=== PATIENT | male | born 1955 | race Caucasian/White ===

== ENCOUNTER 2023-12-25 19:12 | Emergency (ER) | payer MEDICARE, OTHER, SELFPAY ==
--- NOTE | ~2023-12-25 | XR_ITS ---
EXAMINATION: XR femur LT min 2V, [id number] DATE: 12/25/2023 19:53 INDICATION: Left leg injury TECHNIQUE: 1. AP and lateral views of the left femur were obtained on overlapping proximal and distal images. 2. AP and lateral views of the left knee were obtained.. COMPARISON: None. FINDINGS: Spiral fracture of the distal left femoral diaphysis. There is 1-2 cortical widths anterolateral disp lacement and 8 degrees anterior angulation. There is also 5.7 cm proximal migration. No other fractur es identified. Normal alignment with mild osteoarthritis at the left hip. Normal alignment at the lef t knee joint with at least moderate osteoarthritis in the lateral compartment and mild osteoarthritis in the medial and patellofemoral compartments. No left knee joint effusion. There are atheroscleroti c calcifications along the popliteal artery. IMPRESSION: 1. Displaced and angulated distal diaphyseal fracture of the left femur. Reviewed, dictated and finalized at location A. SSIONS NURSE IMPRESSION: 1. Displaced and angulated distal diaphyseal fracture of the left femur.
[2023-12-25 19:17] VITALS: BP 136/72; PULSE 97; RESP 14; TEMP 36.4; O2SAT 100
--- NOTE | 2023-12-25 19:25 | ED.GENADULT ---
HPI - General Adult General Chief complaint: Extremity Injury, Lower <CA Arteaga Last Filed: 12/26/23 02:08> Stated complaint: knee pain <CA Arteaga Last Filed: 12/26/23 02:08> Time Seen by Provider: 12/25/23 19:20 <CA Arteaga Last Filed: 12/26/23 02:08> Source: patient <CA Arteaga Last Filed: 12/26/23 02:08> Mode of arrival: ambulatory <CA Arteaga Last Filed: 12/26/23 02:08> Limitations: no limitations <CA Arteaga Last Filed: 12/26/23 02:08> History of Present Illness HPI narrative: This is a 68-year-old male who presents to the ED via EMS with chief complaint of left knee injury that occurred just prior to arrival. Patient states that he had his left leg crossed over the right knee while trying to put on shoes to go bowling tonight. He reports when he across the leg over and bent forward he felt a pop and immediate pain in left knee. Denies any further sites of pain or injury. Denies numbness, weakness, <CA Arteaga Last Filed: 12/26/23 02:08> Related Data Allergies/adverse reactions: Allergies Allergy/AdvReac Type Severity Reaction Status Date / Time Penicillins Allergy Rash Verified 12/25/23 19:24 <CA Arteaga Last Filed: 12/26/23 02:08> Review of Systems Review of Systems: All systems as dictated in HPI <CA Arteaga Last Filed: 12/26/23 02:08> Exam Narrative: GENERAL: Well-appearing, well-nourished, and in no acute distress. HEAD: Normocephalic, atraumatic. EYES: PERRLA and EOMI. ENT: Nares clear, no rhinorrhea or epistaxis. Mucous membranes moist. Oropharynx without tonsillar hypertrophy exudate or other lesions. NECK: Supple. No adenopathy or masses. CHEST: No respiratory distress. Clear to auscultation. No wheezes rales or rhonchi HEART: Regular rate and rhythm. No murmur heard. Normal peripheral pulses. ABDOMEN: Soft, nontender, nondistended, normal active bowel sounds. MSK: LLE: Moderate effusion noted to the left knee. Crepitus palpated. Moderate tenderness throughout the left knee. Patella seems to be aligned. The left leg is slightly shorter than right. Minimal hip pain with log roll of the left leg. Neurovascularly intact distally RLE: Benign SKIN: Warm, dry, no rash. NEURO: Alert and oriented x3. No focal deficits. PSYCH: Normal mood and affect. <Kimani Veronica PA-C - Last Filed: 12/26/23 02:08> Course Vital Signs Vital signs: Vital Signs Temperature 97.6 F 12/25/23 19:17 Pulse Rate 97 12/25/23 19:17 Respiratory Rate 14 12/25/23 19:17 Blood Pressure 136/72 12/25/23 19:17 Pulse Oximetry 100 12/25/23 19:17 Oxygen Delivery Room Air 12/25/23 19:17 Temperature 97.6 F 12/25/23 21:26 Pulse Rate 76 12/25/23 21:26 Respiratory Rate 15 12/25/23 21:26 Blood Pressure 137/78 12/25/23 21:26 Pulse Oximetry 100 12/25/23 21:26 Oxygen Delivery Room Air 12/25/23 19:17 <Kimani Veronica PA-C - Last Filed: 12/26/23 02:08> Vital Signs Temperature 97.6 F 12/25/23 19:17 Pulse Rate 97 12/25/23 19:17 Respiratory Rate 14 12/25/23 19:17 Blood Pressure 136/72 12/25/23 19:17 Pulse Oximetry 100 12/25/23 19:17 Oxygen Delivery Room Air 12/25/23 19:17 Temperature 97.6 F 12/25/23 21:26 Pulse Rate 76 12/25/23 21:26 Respiratory Rate 15 12/25/23 21:26 Blood Pressure 137/78 12/25/23 21:26 Pulse Oximetry 100 12/25/23 21:26 Oxygen Delivery Room Air 12/25/23 19:17 <Jonnie Montano MD - Last Filed: 12/26/23 13:04> Medical Decision Making MDM Narrative Medical decision making narrative: This is a 68-year-old male who presents to the ED with chief complaint of left knee injury occurring while bending over to tie his shoes. He comes via EMS with diffuse left knee swelling and crepitus. Neurovascularly intact distally. Vitals are normal. Exam remarkab
[2023-12-25 20:39] LABS: Alanine Aminotransferase 25 U/L (6-50); Albumin Level 4.1 g/dL (3.5-5.1); Alkaline Phosphatase 58 U/L (38-126); Anion Gap 9 mmol/L (8-16); Aspartate Amino Transferase 29 U/L (17-59); Bilirubin,Total 0.8 mg/dL (0.2-1.3); Blood Urea Nitrogen 22 mg/dL (9-20); Calcium 9.4 mg/dL (8.4-10.2); Carbon Dioxide 25 mmol/L (22-30); Chloride 104 mmol/L (98-107); Estimated CRCL calculation 79 ml/min; Estimated Glomerular Filt Rate > 60; Glucose 107 mg/dL (65-110); Potassium 4.1 mmol/L (3.4-5.0); Sodium 138 mmol/L (137-145)
[2023-12-25 21:03] LABS: Basophils Absolute Auto 0.1 K/mm3 (0.0-0.1); Basophils Percent Auto 0.7 % (0.2-1.2); Eosinophils Absolute Auto 0.1 K/mm3 (0-0.3); Eosinophils Percent Auto 0.8 % (0-4.4); Hematocrit 45.2 % (42.0-52.0); Hemoglobin 15.5 g/dL (14.0-18.0); Immature Granulocyte Absolute 0.05 K/mm3 (0.00-0.031); Immature Granulocyte Percent A 0.4 % (0-0.5); Lymphocytes Absolute Auto 1.59 K/mm3 (0.9-3.2); Mean Corpuscular HGB Conc 34.3 g/dl (32-36); Mean Corpuscular Hemoglobin 29.6 pg (26-34); Mean Corpuscular Volume 86.3 fl (80-100); Mean Platelet Volume 10.8 fl (7.4-10.4); Monocytes Absolute Auto 1.1 K/mm3 (0.1-0.6); Monocytes Percent Auto 8.1 % (2.6-8.5); Neutrophils Absolute Auto 10.3 K/mm3 (1.3-6.7); Platelet Count Result 266 k/mm3 (150-375); Red Blood Count 5.24 M/mm3 (4.6-6.20); Red Cell Distribution Width 14.2 % (11.5-14.5); White Blood Count 13.2 K/mm3 (4.5-10.0)
[2023-12-25 21:17] LABS: Partial Thromboplastin Time 29.2 SECONDS (22.3-36.8); Prothrombin Time 13.3 Seconds (11.1-14.7)
[2023-12-25] MEDS: MORPHINE SULFATE (*CRX) 4 MG/ML INJ IV PUSH (21:18)
[2023-12-25 21:26] VITALS: BP 137/78; PULSE 76; RESP 15; TEMP 36.4; O2SAT 100
== END 2023-12-25 21:28 | disposition short-term general hospital (02) ==
LOC: ANHED 20:35
PROVIDERS: Emergency Provider Physician Assistant
DX: S72.342A Displaced spiral fracture of shaft of left femur, initial encounter for closed fracture (principal); X58.XXXA Exposure to other specified factors, initial encounter
CPT/HCPCS: 36415; 73552; 73560; 80053; 85025; 85610; 85730; 96374; 99285; J2270

== ENCOUNTER 2024-01-14 07:51 | Outpatient (RCR) | payer MEDICARE, OTHER, SELFPAY ==
--- NOTE | 2024-01-14 08:02 | OPREHPOC ---
Outpatient Therapy Plan of Care This is a Multidisciplinary Plan of Care that may contain components documented by all disciplines (PT, OT, and ST.) PT Problem 1 PT Problem #1 Knowledge Deficit PT Goal 1 Goal 1. independent and compliant with HEP Target Visit 6 PT Problem 2 PT Problem #2 Pain PT Goal 1 Goal 1. patient to maintain pain in the L hip/LE no more than 2/10 Target Visit 12 PT Problem 3 PT Problem #3 Impaired Range of Motion PT Goal 1 Goal 1. improve active L hip flexion to 100 degrees or better 2. improve active L knee flexion to 115 degrees or better 3. improve passive L hip ER to 30 degrees or better Target Visit 12 PT Problem 4 PT Problem #4 Impaired Strength PT Goal 1 Goal 1. improve bilateral hip strength to 4+/5 or better flexion 2. improve bilateral hip abduction to 4/5 or better bilat 3. 5/5 bilateral knee strength 4. 5/5 bilateral ankle DF Target Visit 12 PT Problem 5 PT Problem #5 Impaired Functional Mobil PT Goal 1 Goal 1. patient to ambulate with a cane in 3 weeks Target Visit 6 PT Goal 2 Goal 1. patient to ambulate without any AD 2. patient to ambulate up and steps with reciprocal gait mechanics 3. LEFS to display less than 30% functional deficits 4. patient to return to golf weekly to improve quality of life Target Visit 12
--- NOTE | 2024-01-14 08:03 | PTOPEVAL1 ---
Assessment and note entered by JT File, PT Evaluation Information Assessment Status Evaluation Diagnosis s/p spiral fracture of the L femur Onset 12/25/23 Subjective Information patient was putting on his socks and broke his femur. he reports he was sitting down when this happened. he reports he had surgery the next day. he had an ORIF with IM nail in the L femur. he is WBAT and has no other restrictions. he reports he is on his own at home for the week as his is out of town for work. he reports he does feel tight as he has not had any therapy. patient reports he would like to get back to golfing, gardening, and cutting grass. he reports he would also like to get back to walking without a walker, and playing with his grandson. Reported Pain Level Pain Score 1: Self Report Assessment PT Clinical Summary mr. reese is a 68 yo man who presents to skilled PT services for evaluation and treatment of deficits acquired after L femur fracture. he had an ORIF and IMN placement on the L femur on . he displays decreased rom of the L hip and knee today. he also displays weakness of the L hip and L knee, and abnormal gait mechanics today. continued skilled PT is indicated to improve patients objective/functional deficits and return to prior level functional activity performance quality of life. Plan of Care Interventions Electrical Stimulation,Gait Training,Hot Pack/Cold Pack,Manual Therapy,Neuro Re-education,Patient/ Caregiver Educati,Therapeutic Activities, Therapeutic Exercise PT Services Indicated Yes Treatment Frequency and 2x weekly for 12 visits Duration These treatments will address the objective and functional deficits as defined above. The patient will be advanced safely and appropriately in order for the patient to progress towards his/her prior level of function. Additional exercises will be introduced and as well as a comprehensive home exercise program upon discharge, if needed, ?to ensure carryover of functional gains achieved in the clinic. This treatment plan has been reviewed and agreement upon by the patient.
--- NOTE | 2024-02-03 10:23 | PCPTNOTE ---
02/03/24: Pt cancelled today's appointment, no reason given. -Faye Mcdonald, PT
--- NOTE | 2024-02-10 07:26 | PCPTNOTE ---
patient cancelled due to being hospitalized
== END 2024-02-06 20:00 | disposition home or self-care (01) ==
LOC: CHSPT 07:51
DX: S72.342D Displaced spiral fracture of shaft of left femur, subsequent encounter for closed fracture with routine healing (principal)
CPT/HCPCS: 97110; 97150; 97161; 97530

== ENCOUNTER 2024-05-04 07:48 | Outpatient (RCR) | payer MEDICARE, OTHER, SELFPAY ==
--- NOTE | 2024-05-04 10:48 | OPREHPOC ---
Outpatient Therapy Plan of Care This is a Multidisciplinary Plan of Care that may contain components documented by all disciplines (PT, OT, and ST.) PT Problem 1 PT Problem #1 Knowledge Deficit PT Goal 1 Goal The patient will be independent in a home exercise program. Target Visit 4 PT Problem 2 PT Problem #2 Impaired Balance PT Goal 1 Goal The patient will improve Tinetti Balance Scale score from 10/17 to 20 indicating a moderate fall risk rather than high fall risk. Target Visit 24 PT Problem 3 PT Problem #3 Impaired Gait PT Goal 1 Goal The patient will demonstrate the ability to ambulate with the least restrictive assistive device modified independent for a total of 600 feet during the 6 minute walk test. Target Visit 24 PT Problem 4 PT Problem #4 Impaired Functional Mobil PT Goal 1 Goal 1. The patient will perform pivot transfer from wheelchair to treatment mat with stand by assist. 2. The patient will demonstrate 150 degrees of left shoulder flexion AROM in sitting to improve overhead reaching ability. Target Visit 10 PT Goal 2 Goal The patient will transfer sit to stand independently. Target Visit 24 PT Problem 5 PT Problem #5 Impaired Strength PT Goal 1 Goal 1. The patient will demonstrate 4/5 left shoulder strength to improve overhead lifting ability. 2. The patient will demonstrate 4/5 bilateral hip strength to improve standing and walking tolerance . Target Visit 24
--- NOTE | 2024-05-04 10:48 | PTOPEVAL1 ---
Assessment and note entered by Faye Mcdonald, PT Evaluation Information Assessment Status Evaluation Diagnosis Weakness, GBS Onset 02/03/24 Subjective Information Vincent Ojeda reports on 02/03/24 he woke up in the middle of the night and had no feeling in both hands and feet. He went by ambulance to [facility] and was diagnosed with Guillain-Richmond Syndrome ( GBS). He spent 3 weeks in the ICU with a collapsed lung and he had a trach and NG tube. He then spent 3 more weeks at [facility] on a medical floor. From there, he went to [facility] for rehab for a month. He then went to [facility] in [place] for more intense rehab. He spent 30 days there. He came home on 04/25/24. He has a custom made manual wheelchair and two walkers he uses at home. He uses one walker in the bathroom and the other in the rest of the house. He also uses a wheelchair in the house. He was taking cancer medication in January because he had a spot on his lung and he thinks that may have caused him to develop GBS. He has an appointment on 05/10/24 for a full day of testing to follow up on GBS and the potential cancer. He has no pain but he has difficulty moving and weakness. He is able to walk short distances of 50-60 feet in his home with a walker and he can stand for a few minutes to cook. He reports he lives with his but she is out of town a lot working. He is able to do daily activities of bathing, dressing, and grooming independently. He has in home care assistance 3 days a week to help with meal prep and cleaning. He is unable to drive. Reported Pain Level Pain Score 0: Self Report Assessment PT Clinical Summary Vincent Ojeda presents with weakness and decreased functional abilities after being diagnosed with Guillain-Richmond Syndrome in January 2024. He also sustained a left femur fracture in December 2023. He spent 6 weeks in the hospital and participated in 2 months of inpatient rehabilitation at 2 different facilities. He has difficulty with walking, prolonged standing, and sit to stand transfers. He is unable to go up and down stairs and can not drive. He objectively demonstrates decreased left shoulder AROM; decreased left > right shoulder strength; decreased bilateral hip, knee, and ankle strength; decreased static and d
--- NOTE | 2024-07-21 07:44 | PTOPDC ---
Assessment and note entered by Faye Mcdonald, PT Evaluation Information Assessment Status Discharge - Pt Not Presen Diagnosis Weakness, GBS Onset 02/03/24 Subjective Information Pt not present for discharge summary. He was reporting improved L shoulder pain at his last visit on 05/14/24. Assessment PT Clinical Summary Vincent Ojeda completed 4 skilled PT visits following diagnosis of Guillain-Ramey Syndrome. He was reporting less left shoulder pain at his last visit on 05/14/24. Pt being discharged after not being seen for 2 months. Plan of Care PT Services Indicated No
== END 2024-05-14 14:33 | disposition home or self-care (01) ==
LOC: CHSPT 07:48
PROVIDERS: PCP Internal Medicine; Visit Provider Internal Medicine
DX: R53.1 Weakness (principal); Y93.B9 Activity, other involving muscle strengthening exercises
CPT/HCPCS: 97110; 97161; 97530

== ENCOUNTER 2024-07-08 13:45 | Outpatient (RCR) | payer MEDICARE, OTHER, SELFPAY ==
--- NOTE | 2024-05-17 15:33 | OTOPEVAL1 ---
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 He was doing very well recovering from this. He was started on pembrolizumab (an immunosuppressant) on 01/28/24 for cancer treatment, which is when he began to experience gross bodily weakness and was admitted to [facility]. On 02/10/24 he was intubated due to a decline in his respiratory status. He was diagnosed with Guillain-Bayard Syndrome. He discharged to [facility] 03/04/24 and subsequently to [facility] for continued OT/PT services. He has been home from rehab for about 3 weeks. He states in the last few weeks he has progressed to being able to complete bathing, dressing, and toileting independently. He has been standing and completing light meal prep with his walker. He is motivated to be able to go up/down stairs, walk without his walker, grill, get down and be able to pull weeds, mow the grass, garden, trim trees, drive, grocery shop, and play golf. He lives at home with his who travels for work often. Assessment OT Clinical Summary Patient referred to OT with dx of Guillain-Ibrahim? Syndrome. He presents with left shoulder and periscapular muscle weakness, evident by an atrophied scapula. He demonstrates very weak shoulder external rotation on this arm and has been heavily compensating with the deltoid/traps to raise the arm overhead. The left elbow through wrist have progressed to a functional level. The right shoulder has progressed to 3+/5 grossly. The elbow is weak, measuring 4-/5. Distally, bilateral inventory control analyst strengths are about 50% normal. Due to the gross upper body weakness he is limited in functional lifting, reaching, and carrying, which affects ADLs and IADLs. Skilled OT indicated to maximize functional strength and independence with ADLs. Plan of Care Interventions Therapeutic Exercise,Neuro Re-education, Therapeutic Activities OT Services Indicated Yes These treatments will address the objective and functional deficits as defined above. The patient will be advanced safely and appropriately in order for the patient to progress towards his/her prior level of function. Additional exercises will be introduced and as well as a comprehensive
--- NOTE | 2024-05-17 15:33 | OPREHPOC ---
Outpatient Therapy Plan of Care This is a Multidisciplinary Plan of Care that may contain components documented by all disciplines (PT, OT, and ST.) OT Problem 1 OT Problem #1 Knowledge Deficit OT Goal 1 Goal 1. Patient to be independent with instructed materials. Target Visit 10 OT Problem 2 OT Problem #2 Impaired Strength OT Goal 1 Goal Left UE: 1. Patient to increase left shoulder external rotation strength to 3+/5. 2. Patient to increase left shoulder flexion and abduction strength to 4/5. 3. Patient to increase left forest science professor strength to 60 lbs. Right UE: 4. Patient to increase right shoulder flexion, abduction, and external rotation strength to 4/5. 5. Patient to increase right biceps/triceps strength to 4+/5. 6. Patient to increase right forest science professor strength to 60 lbs. Target Visit 10 OT Problem 3 OT Problem #3 Impaired Functional ADLs OT Goal 1 Goal 1. Patient to be able to stand and place 1 lb. objects onto an overhead shelf with bilateral UEs. Target Visit 10
--- NOTE | 2024-06-10 14:51 | PCPTNOTE ---
Addendum: Goals related to 05/17/2024 evaluation.
--- NOTE | 2024-06-14 07:29 | OPREHPOC ---
Outpatient Therapy Plan of Care This is a Multidisciplinary Plan of Care that may contain components documented by all disciplines (PT, OT, and ST.) PT Problem 1 PT Problem #1 Knowledge Deficit PT Goal 1 Goal Pt will demo HEPs on BLE flexibility, core stabilization and lumbar stabilization indep Target Visit 12 PT Problem 2 PT Problem #2 Impaired Range of Motion PT Goal 1 Goal Pt will demo 10-15 deg improvement in BLE AROM to all planes. (at eval) BLE hip flexors, abductors: 3-/5 L knee extensors: 3/5, flexors: 3-/5 B ankle DF: 3/5 unable to take resistance Target Visit 12 PT Problem 3 PT Problem #3 Impaired Strength PT Goal 1 Goal Pt will demo 4/5 strength grossly to BLEs. Target Visit 12 PT Problem 4 PT Problem #4 Impaired Gait PT Goal 1 Goal Pt will demo improved B heel strike and improved hip and knee flexion during toe-off/midswing phase . Target Visit 12 PT Problem 5 PT Problem #5 Impaired Functional Mobil PT Goal 1 Goal Pt will safely perform foot clearance during ascending/descending steps with railings. Target Visit 12 OT Problem 1 OT Problem #1 Knowledge Deficit OT Goal 1 Goal 1. Patient to be indepenent with instructed materials. Target Visit 10 OT Problem 2 OT Problem #2 Impaired Strength OT Goal 1 Goal Left UE: 1. Patient to increase left shoulder external rotation strength to 3+/5. 2. Patient to increase left shoulder flexion and abduction strength to 4/5. 3. Patient to increase left diamond mounter strength to 60 lbs. Right UE: 4. Patient to increase right shoulder flexion, abduction, and external rotation strength to 4/5. 5. Patient to increase right biceps/triceps strength to 4+/5. 6. Patient to increase right diamond mounter strength to 60 lbs.
--- NOTE | 2024-06-17 11:04 | OTOPPROG ---
Assessment and note entered by Chaim Lee, RONNA/Robert, CHT Evaluation Information Assessment Status Progress Diagnosis Guillain-Julian Syndrome Subjective Information Patient reports good progress since working with therapy. He reports he is doing his ADLs quicker. He no longer has the [facility] [employer] service, so he is having to make his own meals. He is doing more meal prep in the kitchen, standing at the counter to chop veggies, opening cans, etc. He is back to cutting his own nails. He reports he continues to experience paresthesia in the fingers . He states his left shoulder is feeling stronger and no longer popping when he raises it up. He is motived to get back to grilling, get down and be able to pull weeds, mow the grass, garden, trim trees, drive, grocery shop, and play golf. He is unable to do these activities yet. Assessment OT Clinical Summary Patient referred to OT with dx of Guillain-Ibrahim? Syndrome. He presents today for OT reassessment after 9 OT sessions focused on improving UB strength and function. Left shoulder flexion and abduction is progressing from 3/5 to 3+/5, he is no longer experiencing popping or discomfort with raising the arm overhead. He continues to demonstrate very limited external rotation strength on the left. Today he was able to use the left UE to place a 1 lb. weight on a high shelf x5 reps consecutively. Left elbow, wrist, and construction supervisor/carpenter have made steady gains. He is now able to open jars without difficulty. Right UE grossly has made gains, measuring 4-/5 for flexion and abduction and 4+/5 for abduction and extension. Right elbow, wrist, and hand have also made steady gains. He is progressing with his free weights and bands at home also. Continued skilled OT indicated to maximize functional strength and independence with ADLs. Plan of Care Interventions Therapeutic Exercise,Neuro Re-education, Therapeutic Activities OT Services Indicated Yes Treatment Frequency and 2x/week for 10 visits Duration These treatments will address the objective and functional deficits as defined above. The patient will be advanced safely and appropriately in order for the patient to progress towards his/her prior level of function. Additional exercises will be introduced and as well as a comprehensive home exercise program upon discharge, if needed, ?to ensure carryover of functional gains achieved in the clinic. This treatment plan has
--- NOTE | 2024-06-17 11:04 | OPREHPOC ---
Outpatient Therapy Plan of Care This is a Multidisciplinary Plan of Care that may contain components documented by all disciplines (PT, OT, and ST.) PT Problem 1 PT Problem #1 Knowledge Deficit PT Goal 1 Goal Pt will demo HEPs on BLE flexibility, core stabilization and lumbar stabilization indep Target Visit 12 PT Problem 2 PT Problem #2 Impaired Range of Motion PT Goal 1 Goal Pt will demo 10-15 deg improvement in BLE AROM to all planes. (at eval) BLE hip flexors, abductors: 3-/5 L knee extensors: 3/5, flexors: 3-/5 B ankle DF: 3/5 unable to take resistance Target Visit 12 PT Problem 3 PT Problem #3 Impaired Strength PT Goal 1 Goal Pt will demo 4/5 strength grossly to BLEs. Target Visit 12 PT Problem 4 PT Problem #4 Impaired Gait PT Goal 1 Goal Pt will demo improved B heel strike and improved hip and knee flexion during toe-off/midswing phase . Target Visit 12 PT Problem 5 PT Problem #5 Impaired Functional Mobil PT Goal 1 Goal Pt will safely perform foot clearance during ascending/descending steps with railings. Target Visit 12 OT Problem 1 OT Problem #1 Knowledge Deficit OT Goal 1 Goal 1. Patient to be indepenent with instructed materials. ---OT POC UPDATE 06/17/24--- 1. Met Target Visit 20 OT Problem 2 OT Problem #2 Impaired Strength OT Goal 1 Goal Left UE: 1. Patient to increase left shoulder external rotation strength to 3+/5. 2. Patient to increase left shoulder flexion and abduction strength to 4/5. 3. Patient to increase left district court judge strength to 60 lbs. Right UE: 4. Patient to increase right shoulder flexion, abduction, and external rotation strength to 4/5. 5. Patient to increase right biceps/triceps strength to 4+/5.
--- NOTE | 2024-06-21 13:37 | PTOPPROG ---
Assessment and note entered by Alexia Aguayo, PT Evaluation Information Assessment Status Progress Diagnosis GBS, ICD-10 Condition Codes (PT) M54.16,Pain in right hip M25.551,Difficulty Walking R26.2,R26.9 Onset February 03, 2024 Subjective Information Pt reports he roughly had 2 hours of sleep last night which may affect my performance today . States he is feeling that he has gained strength, continue to experience insomnia which affects his ability to perform daily tasks. states that his main goal right now is to be able to walk up and down stairs, get in and out of car and drive independently. Assessment PT Clinical Summary Pt demo gains in strength and ROM, improved standing balance and ambulation. However, continues to demo deficits and continue to be at a high risk for falls at this time. Skilled PT necessary to continue to progress towards established goals and improve independence and safety. Plan of Care Interventions Electrical Stimulation,Gait Training,Hot Pack/Cold Pack,Manual Therapy,Neuro Re-education,Patient/ Caregiver Education,Therapeutic Activities, Therapeutic Exercise Other Interventions IASTM, Dry Needling PT Services Indicated Yes Treatment Frequency and 2x/wk x 10 visits Duration These treatments will address the objective and functional deficits as defined above. The patient will be advanced safely and appropriately in order for the patient to progress towards his/her prior level of function. Additional exercises will be introduced and as well as a comprehensive home exercise program upon discharge, if needed, ?to ensure carryover of functional gains achieved in the clinic. This treatment plan has been reviewed and agreement upon by the patient.
--- NOTE | 2024-06-21 13:51 | OPREHPOC ---
Outpatient Therapy Plan of Care This is a Multidisciplinary Plan of Care that may contain components documented by all disciplines (PT, OT, and ST.) PT Problem 1 PT Problem #1 Knowledge Deficit PT Goal 1 Goal Pt will demo HEPs on BLE flexibility, core stabilization and lumbar stabilization indep Target Visit 12 Progress Partially Met Comment Pt required cues for proper execution to avoid compensatory movements; cont to work towards meeting this goal. PT Problem 2 PT Problem #2 Impaired Range of Motion PT Goal 1 Goal Pt will demo 10-15 deg improvement in BLE AROM to all planes. Target Visit 12 Progress Partially Met Comment cont to work towards this goal PT Problem 3 PT Problem #3 Impaired Strength PT Goal 1 Goal Pt will demo 4/5 strength grossly to BLEs. Target Visit 12 Progress Partially Met Comment upgraded goal to improve BLE strength to allow increased tolerance to standing tasks PT Goal 2 Goal New Goal: Pt will perform 15-20 reps of BLE motions in all planes in standing with BUE supported on the // bars. Target Visit 10 PT Problem 4 PT Problem #4 Impaired Gait PT Goal 1 Goal Pt will demo improved B heel strike and improved hip and knee flexion during toe-off/midswing phase . Target Visit 12 Progress Met PT Problem 5 PT Problem #5 Impaired Functional Mobil PT Goal 1 Goal Pt will safely perform foot clearance during ascending/descending with railings. Target Visit 12 Progress Partially Met PT Goal 2 Goal New goal: Pt will safely perform foot clearance during ascending/descending 6 steps with railings x 2. (to improve endurance as well) OT Problem 1 OT Problem #1 Knowledge Deficit OT Goal 1 Goal 1. Patient to be indepenent with instructed materials. ---OT POC UPDA
--- NOTE | 2024-07-06 09:02 | PCPTNOTE ---
Provider Canceled pts appt today due to increasing blistery looking spots surrounding recent (April) surgical site. Pt presented with increased swelling in knee joint as well. Pt reported Calling and left messages with his oncology MD but was only able to leave message with no reply by end of pt session time. Pt is encouraged to go to Emergency room for further evaluation. Pt called and they decided to not go to the emergency room and wait for PET Scan on Friday to see MD. Pt will continue with OT today.
--- NOTE | 2024-07-23 15:37 | PTOPDC ---
Assessment and note entered by Rekha Raya, PT Discharge Report Assessment Status Discharge - Pt Not Present Diagnosis GBS, ICD-10 Condition Codes (PT) M54.16,Pain in right hip M25.551,Difficulty Walking R26.2,R26.9 Onset February 03, 2024 Subjective Information pt called today and left a message to cancel his PT due to his cancer. Assessment PT Clinical Summary Eamon has received 11 PT sessions, from May 17 to June 21. He called today and canceled PT due to his cancer. The goals were not assessed. Discharge PT services. Plan of Care PT Services Indicated No
--- NOTE | 2024-07-27 11:24 | OTOPDC ---
Assessment and note entered by RONNA Hernandez/Robert, CHT OT Discharge Notification 07/27/24 OT Clinical Summary Eamon participated in 15 OT treatments from 05/17 through 07/09. Patient called and cancelled remaining therapy visits, reporting being too busy with cancer treatments at this time. No formal reassessment completed. Please refer to note dated 06/17/24 for most recent progress update from OT. Thank you for this referral.
== END 2024-07-27 14:32 | disposition home or self-care (01) ==
LOC: ANHOT 13:45
PROVIDERS: PCP Internal Medicine; Visit Provider Internal Medicine
DX: G61.0 Guillain-Barre syndrome (principal)
CPT/HCPCS: 97110; 97116; 97140; 97161; 97167; 97530; 97750

== ENCOUNTER 2024-08-29 16:04 | Inpatient (IN) | payer MEDICARE, OTHER, SELFPAY ==
[2024-08-29] VITALS (11 sets, daily range): BP systolic 95–108; BP diastolic 38–59; PULSE 73–91; RESP 15–21; TEMP 36.7–37.1; O2SAT 93–100; BMI 31.0
--- NOTE | ~2024-08-29 | CT_ITS ---
Clinical Indication: GI bleed, positive d-dimer, DVT, hypotension CT Scan of the Chest, Abdomen, and Pelvis with Contrast: Technique: Contiguous sections were acquired throughout the chest, abdomen, and pelvis after intraven ous administration of 100 cc of Omnipaque 350. Dose reduction technique was used on this scan by uti mitchelling automated exposure control and iterative reconstruction technique. The dose-length product (DL P) was 1640.47 mGy-cm. Findings: There is left supraclavicular lymphadenopathy adjacent to the left thyroid lobe. There is an enlarged right axillary lymph node, measuring 2.6 x 2.1 cm, with loss of fatty hilum (axial image 38). Enlarg ed right hilar lymph node measures 2.2 cm in diameter. Mildly enlarged left hilar lymph nodes are pre sent. No pulmonary embolus evident. No aortic aneurysm or dissection. There is no evidence of pleural or pericardial effusion. There is focal airspace consolidation at the inferolateral left upper lobe. There are probable mild d ependent atelectatic changes bilaterally. The liver, spleen, pancreas, gallbladder, adrenals and right kidney are within normal limits. No clara dence of aortic aneurysm. There is an irregular left renal mass measuring at least 7.3 x 6.3 cm, extensively involving the left renal hilar region, compatible with malignancy. There is extensive bulky retroperitoneal/perinephric lymphadenopathy with additional abnormal soft tissue partially encasing the common and external marcello c vessels bilaterally. There is additional bulky lymphadenopathy about the external iliac vessels paulo r the inguinal regions bilaterally. There are enlarged left inguinal lymph nodes. There are multiple mildly enlarged central mesenteric lymph nodes. There is metastatic implant or lymph node partial inv olving the right adrenal gland, measuring 3.1 cm in diameter (axial image 115). Left adrenal nodule m easures 2.0 cm. There are multiple additional small retroperitoneal and peritoneal implants. No bowel obstruction or bowel wall thickening. There is curvilinear apparent contrast extravasation a long the greater curvature of the stomach, which could reflect focal active GI bleeding (axial images 100-104). Suggestion of additional blood products within the gastric lumen. Urinary bladder is collapsed around a Yap catheter. Prostate gland unremarkable. There is a 2.6 cm soft tissue metastasis in the left gluteal musculature (axial image 280). There are additional smalle r soft tissue nodules in the bilateral gluteal regions (axial images 174-209). There are several soft tissue nodules in the lower anterior right thoracic subcutaneous soft tissues (axial image 97 for ex ample). There is a 4.2 cm soft tissue implant along the lateral left chest wall (axial image 97). Impression: Curvilinear apparent contrast extravasation along the greater curvature the stomach, as detailed abov e, suspicious for active GI bleed. 7.3 x 6.3 cm left renal mass extends along the left renal hilum, suspicious for malignancy, likely r enal cell carcinoma versus lymphoma. Extensive additional metastatic disease, including bulky, extensive lymphadenopathy, especially in th e retroperitoneum and along the common and external iliac chains, as well as numerous peritoneal and peripheral soft tissue implants, as detailed above. Probable bilateral adrenal implants. Findings are compatible with metastatic disease versus lymphoma. Patchy consolidation at the inferolateral left upper lobe, suspicious for pneumonia. Reviewed, dictated and finalized at [facility]. Impression: Curvilinear apparent contrast extravasation along the greater curvature the sto mach, as detailed above, suspicious for active GI bleed. 7.3 x 6.3 cm left renal mass extends along
--- NOTE | ~2024-08-29 | XR_ITS ---
XR chest port-a-cath/central Ordering provider: Gm Espana APRN History: 68 years Male with . Central line placement verification--will call . Comparison: None. FINDINGS: MEDIASTINUM: The cardiac silhouette is not enlarged. Right central line with the tip overlying the moreno perior vena cava. Congestive elizabeth. LUNGS: No effusions or pneumothorax. Opacification the left mid and lower zone suggestive of pneumoni a. Underlying fibrotic changes is not excluded. Prominent markings in the right perihilar and lower lobe area. OTHER: No free air under the diaphragm. IMPRESSION: Left mid and lower zone pneumonia. Prominent markings in the right lower lobe area. Underlying fibrot ic changes. Reviewed, dictated and finalized at [facility]. IMPRESSION: Left mid and lower zone pneumonia. Prominent markings in the right lower lobe a travis. Underlying fibrotic changes.
--- NOTE | 2024-08-29 16:08 | ECG_ITS ---
Test Date: 2024-08-29 16:04:16 Measurements Intervals [place] Rate: 88 P: 51 OR: 174 QRS: -47 QRSD: 154 T: 76 QT: 383 QTc: 465 Interpretive Statements SINUS RHYTHM POSSIBLE LEFT ATRIAL ENLARGEMENT [-0.1mV P WAVE IN V1/V2] MARKED LEFT AXIS DEVIATION [QRS AXIS < -30] LEFT BUNDLE BRANCH BLOCK [120+ ms QRS DURATION, 80+ ms Q/S IN V1/V2, 85+ ms R IN I/aVL/V5/V6] No previous ECG available for comparison Electronically Signed On 08-29-2024 21:06:47 CDT by Gilda Adams M.D.
--- NOTE | 2024-08-29 16:15 | ED.CHESTPAIN ---
HPI - Chest Pain General Chief Complaint: Chest Pain Stated Complaint: STEMI History of Present Illness HPI narrative: 68-year-old male present to the emergency department for evaluation of a suspected STEMI. Patient is currently at [facility] and is there due to having a leg fracture and developing as subsequent bacterial infection. Patient states he did have 2 episodes of physical therapy today and was doing well. Patient states they are checking his vitals and did not doing EKG. The initially states that his heart rate was in the 30s. Patient then converted to a left bundle-branch and EMS was concerned about ST elevations. Upon arrival emergency department patient denies any chest pain or complaints. EKG was shared with Cardiology and Cardiology did not feel this was an acute STEMI. STEMI activation was canceled. Related Data Home Medications Medication Instructions Recorded Confirmed acetaminophen 325 mg tablet 650 mg PO Q6H PRN oain 08/29/24 08/29/24 (Tylenol) escitalopram oxalate 10 mg tablet 10 mg PO DAILY 08/29/24 08/29/24 hydrocortisone 2.5 % rectal cream 1 ea topical Q12H 08/29/24 08/29/24 with applicator midodrine 10 mg tablet 15 mg PO TID 08/29/24 08/29/24 Allergies Allergy/AdvReac Type Severity Reaction Status Date / Time pembrolizumab Allergy Other Verified 08/14/24 16:39 Penicillins Allergy Rash Verified 08/14/24 16:39 Review of Systems Review of Systems: All systems reviewed & are unremarkable except as noted in HPI and below PMFSH Past Medical History Medical History (Updated 08/31/24 @ 15:38 by Js Renae MD) Deep venous thrombosis of lower extremity GIB (gastrointestinal bleeding) Guillain-Olaton syndrome Hemorrhagic shock [place]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 History of tracheostomy Social History Social History (Updated 08/29/24 @ 23:52 by Estella Bradley PA-C) Social History: Surrogate medical decision maker: Isabel Solizdejan, spouse. Code status: Do not resuscitate. Smoking status: Never smoker Second hand tobacco smoke exposure: No Alcohol intake: former Substance use: never Substance use type: does not use Do You Feel Safe in your Home?: Yes Lack of Transportation: No Lack of Food: Never True Current Housing: I Have Housing Concerned About Future Housing: No Difficulty Paying Gas/Electric Bills: No Difficulty Paying for Meds: No Currently Unemployed: No Education: High School Diploma/GED Difficulty w/ Childcare or Family Care: No Spiritual care concerns: No Exam Narrative: APPEARANCE: Well appearing, no pain, no distress, well-nourished. HEAD: normocephalic, atraumatic. EYES: PERRLA/EOMI, conjunctivae clear. NOSE: Normal no drainage EARS:TMS clear with good light reflex. THROAT: Pharynx clear, no exudate. NECK: Supple. No adenopathy, no masses. RESPIRATORY: Airway patent, respirations nonlabored. Clear to auscultation bilaterally, no rales, rhonchi, wheezing. CARDIOVASCULAR: Regular rate and rhythm without murmurs rubs or gallops. ABDOMINAL: Soft, nontender, nondistended, normal bowel sounds MUSCULOSKELETAL: Moves all extremities. Strength/ROM intact, No edema, No calf tenderness. NEURO: Alert. Cranial nerves II through XII intact. Grossly intact SKIN: Warm, dry. Normal Color Course Course Emergency Course: Patient was admitted for further cardiac workup Vital Signs Vital signs: Vital Signs Temperature 98.2 F 08/29/24 15:59 Pulse Rate 91 08/29/24 15:59 Respiratory Rate 16 08/29/24 15:59 Blood Pressure 107/55 L 08/29/24 15:59 Pulse Oximetry 100 08/29/24 15:59 Oxygen Delivery Room Air 08/29/24 15:59 Temperature 100.2 F H 08/31/24
[2024-08-29 17:00] LABS: Hematocrit 26.5 % (42.0-52.0); Hemoglobin 8.3 g/dL (14.0-18.0); Mean Corpuscular HGB Conc 31.3 g/dl (32-36); Mean Corpuscular Hemoglobin 26.6 pg (26-34); Mean Corpuscular Volume 84.9 fl (80-100); Mean Platelet Volume 8.9 fl (7.4-10.4); Platelet Count Result 597 k/mm3 (150-375); Red Blood Count 3.12 M/mm3 (4.6-6.20); Red Cell Distribution Width 17.4 % (11.5-14.5); White Blood Count 15.7 K/mm3 (4.5-10.0)
[2024-08-29 17:14] LABS: Alanine Aminotransferase 42 U/L (6-50); Albumin Level 3.1 g/dL (3.5-5.1); Alkaline Phosphatase 211 U/L (38-126); Anion Gap 5 mmol/L (4-12); Aspartate Amino Transferase 62 U/L (17-59); Bilirubin,Total 0.3 mg/dL (0.2-1.3); Blood Urea Nitrogen 23 mg/dL (9-20); Calcium 8.8 mg/dL (8.4-10.2); Carbon Dioxide 28 mmol/L (22-30); Chloride 100 mmol/L (98-107); Estimated CRCL calculation 63 ml/min; Estimated Glomerular Filt Rate 60; Glucose 100 mg/dL (65-110); Magnesium 2.1 mg/dL (1.6-2.3); Potassium 4.9 mmol/L (3.4-5.0); Sodium 133 mmol/L (137-145)
[2024-08-29 17:18] LABS: INR 1.6; Prothrombin Time 19.2 Seconds (11.1-14.7)
[2024-08-29 17:19] LABS: Partial Thromboplastin Time 33.9 Seconds (22.3-36.8)
[2024-08-29 17:26] LABS: NT Pro B Type Natriuretic Pept 3350 pg/mL (19.9-100); Troponin I 0.013 ng/mL (0.000-0.034)
[2024-08-29 17:30] LABS: Band Neutrophils Percent 2 % (0-6); Basophils Absolute Manual 0.15 K/mm3 (0.0-0.1); Basophils Percent Manual 1 % (0-1); Lymphocytes Absolute Manual 1.25 K/mm3 (1.1-4.5); Metamyelocytes Percent 1 %; Monocytes Absolute Manual 0.94 K/mm3 (0.1-0.90); Monocytes Percent Manual 6 % (3-9); Myelocytes Percent 1 %; Neutrophils Absolute Manual 13.03 K/mm3 (1.3-6.7); Neutrophils Percent Manual 81 % (46-73); Total Cells Counted 100
[2024-08-29 17:31] LABS: Anisocytosis 1+; Platelet Estimate Increased (Adequate); Schistocytes None Seen
[2024-08-29 17:32] LABS: Add Urine Microscopic? YES; Appearance Urine Cloudy (Clear); Bacteria Urine 2+ /hpf; Bilirubin Urine 1+ (Negative); Blood Urine Negative (Negative); Color Urine Dark Yellow (Yellow); Glucose Urine UA Negative (Negative); Ketones Urine Trace mg/dL (Negative); Leukocyte Esterase Ur 2+ LEU/UL (Negative); Mucus Urine Present /lpf; Need Manual Microscopic Reviewed; Nitrate Urine Positive (Negative); Non Pathogenic Casts >20; Protein Urine 1+ mg/dL (Negative); RBC Urine 0-2 /hpf (0-2); Squamous Epithelial Cell Urine None Seen /hpf (Few); WBC Urine >100 /hpf (0-3); pH Urine 5.5 (5.0-9.0)
[2024-08-29 19:38] LABS: Troponin I 0.018 ng/mL (0.000-0.034)
--- NOTE | 2024-08-29 19:45 | PM.IMHP ---
H&P: HPI History of Present Illness Date/Time: 08/29/24 19:45 Chief Complaint: Low blood pressure and heart rate. 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 The patient provides the following history. He is at their facility for rehab following a hospitalization at [facility] for repair of a pathological left femur fracture and urosepsis. He has been progressing in rehab and he is supposed to be discharged home tomorrow. On routine vital signs this afternoon he was found to have a blood pressure of 81/37 and a heart rate of 30 and was sent in for evaluation. He reports feeling just fine at that time and was not symptomatic whatsoever. Specifically he denies feelings of weakness, dizziness, lightheadedness, chest pain, shortness of breath, nausea, vomiting, and sweats. He has not had any significant dysuria. He denies cold or flu-like symptoms. Appetite has been good and he denies vomiting and diarrhea. In the ED: Vital signs on arrival include a temperature of 98.2?, blood pressure 107/55, pulse 91, respiratory rate 16, blood pressure 1 100% on room air. Labs were significant for WBC count of 15.7, hemoglobin 8.3, sodium 133, BUN 23, creatinine 1.20, AST 62, alkaline phosphatase 211, troponin 0.013, proBNP three thousand three hundred fifty, total protein 6.0, albumin 3.1. Urine was nitrate and leukocyte esterase positive with greater than 100 WBC and 2+ bacteria. He was given levofloxacin 750 mg and he is being admitted in this setting for close monitoring given the reported bradycardia. Review of Systems Review of Systems: 12 systems were reviewed and are negative except for as per HPI. 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 History of tracheostomy Social History Social History (Updated 08/29/24 @ 23:52 by Estella Bradley PA-C) Social History: Surrogate medical decision maker: Isabel Ojeda, spouse. Code status: Do not resuscitate. Smoking status: Never smoker Second hand tobacco smoke exposure: No Alcohol intake: former Substance use: never Substance use type: does not use Do You Feel Safe in your Home?: Yes Lack of Transportation: No Lack of Food: Never True Current Housing: I Have Housing Concerned About Future Housing: No Difficulty Paying Gas/Electric Bills: No Difficulty Paying for Meds: No Currently Unemployed: No Education: High School Diploma/GED Difficulty w/ Childcare or Family Care: No Spiritual care concerns: No Meds Home Medications and Allergies Home Medications Medication Instructions Recorded Confirmed Type cholecalciferol (vitamin D3) 1,250 1,250 mcg PO WEEKLY #30 caps 08/23/24 08/29/24 Rx mcg (50,000 unit) capsule gabapentin 300 mg capsule 300 mg PO TID #90 caps 08/23/24 08/29/24 Rx paroxetine HCl 20 mg tablet 20 mg PO QAM #30 tabs 08/23/24 08/29/24 Rx prednisone 10 mg tablet 10 mg PO DAILY #30 tabs 08/23/24 08/29/24 Rx sennosides 8.6 mg tablet (senna) 8.6 mg PO BID #60 tabs 08/23/24 08/29/24 Rx trazodone 50 mg tablet 50 mg PO HS #30 tabs 08/23/24 08/29/24 Rx apixaban 5 mg tablet (Eliquis) 5 mg PO Q12HR #120 tabs 08/28/24 08/29/24 Rx apixaban 5 mg tablet (Eliquis) 10 mg PO Q12HR #8 tabs 08/28/24 08/29/24 Rx acetaminophen 325 mg tablet 650 mg PO Q6H PRN oain 1
[2024-08-29] MEDS: levoFLOXacin 750 MG/D5W 150 ML 750 MG/150 ML BAG 100 MG IVPB (20:10)
--- NOTE | 2024-08-29 22:01 | ADMGEN ---
This patient, Vincent Ojeda, was admitted to IMU Room 213-01 at 2146. Patient/family oriented to hospital policies and general routines including ID bracelet, bed and alarms, visiting hours, pain management, procedures, bathroom and other care routines, personal items, smoking policy, room service/diet, and visiting hours. Information on how to activate the Rapid Response Team has been discussed. Patient/Family are encouraged to report perceived risks to care and to ask questions if they do not understand what they are told or what they should do.
[2024-08-30] VITALS (35 sets, daily range): BP systolic 62–150; BP diastolic 37–69; PULSE 74–129; RESP 18–24; TEMP 36.4–37.1; O2SAT 98–100
[2024-08-30] MEDS: SENNOSIDES 8.6 MG TABLET PO ×3 (00:03→16:51)
[2024-08-30] MEDS: traZODone HCL 50 MG TABLET PO (00:03)
[2024-08-30] MEDS: APIXABAN 5 MG TABLET 10 MG PO ×2 (00:03→09:13)
[2024-08-30] MEDS: GABAPENTIN 300 MG CAPSULE PO ×4 (00:03→16:51)
[2024-08-30 05:21] LABS: Hematocrit 27.2 % (42.0-52.0); Hemoglobin 8.4 g/dL (14.0-18.0); Mean Corpuscular HGB Conc 30.9 g/dl (32-36); Mean Corpuscular Hemoglobin 26.5 pg (26-34); Mean Corpuscular Volume 85.8 fl (80-100); Mean Platelet Volume 8.4 fl (7.4-10.4); Platelet Count Result 540 k/mm3 (150-375); Red Blood Count 3.17 M/mm3 (4.6-6.20); Red Cell Distribution Width 17.7 % (11.5-14.5); White Blood Count 13.7 K/mm3 (4.5-10.0)
[2024-08-30 05:38] LABS: Alanine Aminotransferase 45 U/L (6-50); Albumin Level 3.2 g/dL (3.5-5.1); Alkaline Phosphatase 215 U/L (38-126); Anion Gap 4 mmol/L (4-12); Aspartate Amino Transferase 61 U/L (17-59); Bilirubin,Total 0.4 mg/dL (0.2-1.3); Blood Urea Nitrogen 22 mg/dL (9-20); Calcium 9.2 mg/dL (8.4-10.2); Carbon Dioxide 31 mmol/L (22-30); Chloride 101 mmol/L (98-107); Estimated CRCL calculation 53 ml/min; Estimated Glomerular Filt Rate 50; Glucose 86 mg/dL (65-110); Magnesium 2.2 mg/dL (1.6-2.3); Potassium 4.9 mmol/L (3.4-5.0); Sodium 136 mmol/L (137-145)
[2024-08-30 05:42] LABS: Prealbumin 12.1 mg/dL (17.6-36.0)
[2024-08-30] MEDS: PARoxetine 20 MG TABLET PO (09:13)
[2024-08-30] MEDS: MIDODRINE HCL 10 MG TABLET PO ×4 (09:13→19:36)
[2024-08-30] MEDS: predniSONE 10 MG TABLET PO (09:13)
[2024-08-30] MEDS: ESCITALOPRAM OXALATE 10 MG TABLET PO (09:13)
[2024-08-30] MEDS: HYDROCORTISONE 2.5% CREAM 30 GM TUBE 1 APPLIC TOPICAL (09:14)
--- NOTE | 2024-08-30 10:44 | PM.CNCAR ---
Assessment and Plan Assessment and plan (1) Left bundle branch block: Code(s): I44.7 - Left bundle-branch block, unspecified Status: Acute (2) Complete heart block: Code(s): I44.2 - Atrioventricular block, complete Status: Acute Plan this is an unfortunate 68-year-old man with metastatic Boss cell tumor, widespread metastatic disease despite the treatment that was rendered at [facility]. Obviously his prognosis regarding this is terminal. The cardiac issue pertains to bradycardia he has evidence of intermittent complete heart block with both right bundle branch block and left bundle branch block being seen on ECGs. He had a syncopal episode probably resulting from this a couple of months ago. Given his malignancy, DNR status and a terminal condition pacemaker implantation is inappropriate in this situation. Obviously were it not for his this situation he would be a good candidate for implantation of a dual-chamber pacemaker device. The patient understands this and agrees that he does not wish to have a pacemaker implanted and does not wish treatment for cardiac arrhythmias. I would recommend taking him off telemetry and stop monitoring the rhythm since there is no intention of treating arrhythmias in this situation and in this very unfortunate patient Raymon Lantigua MD [facility] History of Present Illness History of Present Illness Consult date/time: 08/30/24 10:44 Reason For Visit: Bradycardia, UTI Narrative: this is a very pleasant but unfortunate 68-year-old man that I am seeing at the request of the hospitalist because of bradycardia. He is not known to me prior to this admission. His record has been reviewed including extensive records from [facility] where he receives his medical care primarily. The patient was sent here yesterday from [facility] because of bradycardia that was noticed routinely checking his vital signs. He did not have any specific complaints. Electrocardiogram performed at that time showed that he was bradycardic with evidence of sinus rhythm, complete heart block and right bundle branch block. After arrival to the emergency room here he was no longer bradycardic and his ECG showed sinus rhythm with one-to-one conduction and a low left bundle branch block. He states that he is not previously known to have any cardiac problems that he can recall. He does state that about 2 months ago earlier this summer he had a syncopal episode at home where he lost consciousness while sitting in a chair and simply slid to the floor. He did not have any significant injury at that time. He does not have any symptoms of chest pain orthopnea PND or accumulating edema. 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 Most recent note from his oncologist from August 08 indicates that he has completed his radiation therapy and is no longer a candidate for any more of that and appears to have had significant progression in his disease despite chemotherapy/radiation therapy. There have been conversations between the patient and has oncologists regarding making a decision regarding hospice therapy. He does have do not resuscitate orders on his chart here. Recent imaging at [place] demonstrates widespread metastatic disease with progression in his some malignancy despite treatment. It seems clear that his prognosis is terminal. Review of Systems Constitutional: Constitutional: Reports lethargy Eyes: Eyes: Reports no additional eye complaints ENT: Reports system reviewed and no additional complaints, except as documented Cardiovascular: Cardiovascular: Reports no additional cardiovascular complaints Respiratory: Respiratory: Reports no additional respiratory complaints Gastrointestinal: Gastrointestinal: Reports no additional
--- NOTE | 2024-08-30 14:54 | PM.DS ---
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 The patient provides the following history. He is at their facility for rehab following a hospitalization at [place] for repair of a pathological left femur fracture and urosepsis. He has been progressing in rehab and he is supposed to be discharged home tomorrow. On routine vital signs this afternoon he was found to have a blood pressure of 81/37 and a heart rate of 30 and was sent in for evaluation. He reports feeling just fine at that time and was not symptomatic whatsoever. Specifically he denies feelings of weakness, dizziness, lightheadedness, chest pain, shortness of breath, nausea, vomiting, and sweats. He has not had any significant dysuria. He denies cold or flu-like symptoms. Appetite has been good and he denies vomiting and diarrhea. In the ED: Vital signs on arrival include a temperature of 98.2?, blood pressure 107/55, pulse 91, respiratory rate 16, blood pressure 1 100% on room air. Labs were significant for WBC count of 15.7, hemoglobin 8.3, sodium 133, BUN 23, creatinine 1.20, AST 62, alkaline phosphatase 211, troponin 0.013, proBNP three thousand three hundred fifty, total protein 6.0, albumin 3.1. Urine was nitrate and leukocyte esterase positive with greater than 100 WBC and 2+ bacteria. He was given levofloxacin 750 mg and he is being admitted in this setting for close monitoring given the reported bradycardia. 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 and also DNR, there is no need for pacemaker implantation consideration. Patient agreed with cardiology and does not want pacemaker implantation. Patient was thus taken off telemetry. Following that patient was discharged back to [facility] with home health. advised to consider hospice care. Discharged on 5 more days fo LEvaquin. Continue other home meds. F/u with PCP in 3-5 days and consider hospice care. Time Spent with Patient Time attestation: Total time spent providing and/or coordinating discharge services: DS: Data Data Completed and Pending Labs on day of discharge: Labs from last 24 hours 08/30/24 08/30/24 08/29/24 14:06 05:13 18:56 WBC 13.7 H RBC 3.17 L Hgb 8.4 L Hct 27.2 L MCV 85.8 MCH 26.5 MCHC 30.9 L RDW 17.7 H Plt Count 540 H MPV 8.4 Immature Gran % (Auto) Neut % (Auto) Lymph % (Auto) Pierce % (Auto) Eos % (Auto) Baso % (Auto) Lymph # (Auto) Pierce # (Auto) Eos # (Auto) Baso # (Auto) Abs Immat Gran (auto) Absolute Neuts (auto) Absolute Nucleated RBC Total Counted Neutrophils % (Manual) Band Neutrophils % Lymphocytes % (Manual) Monocytes % (Manual) Basophils % (Manual) Metamyelocytes % Myelocytes % Nucleated RBC % Abs Neuts (Manual) Abs Lymphs (Manual) Abs Monocytes (Manual) Abs Basophils (Manual) Platelet Estimate Anisocytosis Schistocytes PT INR APTT Sodium 136 L Potassium 4.9 Chloride 101 Carbon Dioxide 31 H Anion Gap 4 BUN 22 H Creatinine 1.40 H Estim Creat Clear Calc 53 Estimated GFR 50 L Glucose 86 Calcium 9.2 Magnesium 2.2 Tota
[2024-08-30 17:26] LABS: SARS-CoV-2 RNA PCR Negative (Negative)
[2024-08-30] MEDS: SODIUM CHLORIDE 0.9% IV 1,000 ML 999 ML IV CONT ×2 (18:28→20:45)
[2024-08-30] MEDS: PANTOPRAZOLE SODIUM IV 40 MG VIAL 80 MG IV PUSH (18:28)
[2024-08-30 18:33] LABS: Basophils Percent Auto 0.2 % (0.2-1.2); Eosinophils Percent Auto 0.1 % (0-4.4); Hematocrit 44.3 % (42.0-52.0); Hemoglobin 13.6 g/dL (14.0-18.0); Immature Granulocyte Absolute 1.43 K/mm3 (0.00-0.031); Immature Granulocyte Percent A 10.1 % (0-0.5); Lymphocytes Absolute Auto 1.21 K/mm3 (0.9-3.2); Lymphocytes Percent Auto 8.5 % (18.3-44.2); Mean Corpuscular HGB Conc 30.7 g/dl (32-36); Mean Corpuscular Hemoglobin 26.6 pg (26-34); Mean Corpuscular Volume 86.7 fl (80-100); Mean Platelet Volume 8.7 fl (7.4-10.4); Monocytes Absolute Auto 0.8 K/mm3 (0.1-0.6); Monocytes Percent Auto 5.7 % (2.6-8.5); Neutrophils Absolute Auto 10.7 K/mm3 (1.3-6.7); Neutrophils Percent Auto 75.4 % (45.5-73.1); Platelet Count Result 421 k/mm3 (150-375); Red Blood Count 5.11 M/mm3 (4.6-6.20); Red Cell Distribution Width 18.6 % (11.5-14.5); White Blood Count 14.2 K/mm3 (4.5-10.0)
[2024-08-30 18:45] LABS: INR 1.9; Prothrombin Time 22.8 Seconds (11.1-14.7)
[2024-08-30 18:51] LABS: Anion Gap 11 mmol/L (4-12); Blood Urea Nitrogen 28 mg/dL (9-20); Calcium 8.4 mg/dL (8.4-10.2); Carbon Dioxide 20 mmol/L (22-30); Chloride 103 mmol/L (98-107); Estimated CRCL calculation 47 ml/min; Estimated Glomerular Filt Rate 43; Glucose 145 mg/dL (65-110); Potassium 5.6 mmol/L (3.4-5.0); Sodium 134 mmol/L (137-145)
[2024-08-30 19:17] LABS: Platelet Estimate Increased (Adequate)
[2024-08-30 19:18] LABS: Anisocytosis 2+; Hypochromasia 1+; Schistocytes None Seen
[2024-08-30 19:20] LABS: Magnesium 2.3 mg/dL (1.6-2.3); Platelet Count Result 436 k/mm3 (150-375)
--- NOTE | 2024-08-30 19:27 | PC.NURSE ---
Around 1800 patient stated he was nauseous and patient vomited red substance. Nurse called MD to notify. Patient shortly after had a lakisha red bowel movement. Nurse called to notify MD of change of condition. New order for care coordination for hospice put in. Also notified MD that family wanted patient to be transferred to [facility] due to established doctors at location. Tech assigned and another nurse on the floor took b/p and it was 80s/40s two different times. Nurse called to notify MD, no answer. Charge nurse was notified. Hospitalist office was called and HOTBED LEVER OPERATOR Yang came to bed side. HOTBED LEVER OPERATOR gave orders. After evaluation of patient, HOTBED LEVER OPERATOR and another MD Gill ordered for patient to be transferred to ICU. Patient moved to ICU 8 via bed accompanied by assigned nurse and tech around 1845.
[2024-08-30] MEDS: SODIUM CHLORIDE 0.9% IV 250 ML 30 ML IV CONT ×4 (19:36→22:38)
[2024-08-30] MEDS: HUMAN PROTHROMBIN COMPLEX(PCC) 5,000 UNITS in PREMIXIV 0 ML 504 UNITS IV CONT (19:36)
[2024-08-30] MEDS: PANTOPRAZOLE SODIUM IV 80 MG in SODIUM CHLORIDE 0.9% IV 500 ML 50 MG IV CONT (19:37)
[2024-08-30] MEDS: NOREPINEPHRINE 8 MG/D5W 250 ML 8 MG/250 ML BAG 15 MG IV CONT (19:37)
[2024-08-30 19:40] LABS: INR 1.9; Partial Thromboplastin Time 32.1 Seconds (22.3-36.8); Prothrombin Time 22.5 Seconds (11.1-14.7)
[2024-08-30 19:41] LABS: Fibrinogen 510 mg/dl (215-510)
[2024-08-30 19:51] LABS: D Dimer 2.49 ug/mL (<0.48)
[2024-08-30 20:00] LABS: Hematocrit 21.2 % (42.0-52.0)
[2024-08-30] MEDS: levoFLOXacin 750 MG/D5W 150 ML 750 MG/150 ML BAG 100 MG IVPB (20:02)
[2024-08-30 20:06] LABS: Hemoglobin 6.3 g/dL (14.0-18.0)
[2024-08-30] MEDS: ONDANSETRON INJ 4 MG/2 ML VIAL IV PUSH (20:18)
[2024-08-30] MEDS: VASOPRESSIN INJ 100 UNITS in DEXTROSE 5% 95 ML IV CONT (20:22)
--- NOTE | 2024-08-30 20:51 | P.PNCROSS_ITS ---
Event Note Event Note Event Note: I was called urgently to patient's room for extremely large bowel movement with lakisha GI bleeding as well as hematemesis. On arrival patient was woozy lying supine with a blood pressure 62/42 minutes tachycardic around 120. He has a history of hypotension and is on midodrine 15 mg 3 times a day for such. No history of GI bleed. Patient had recent diagnosis leg DVT and had been placed on Lovenox at [facility] but when the patient was transferred to the hospital after an episode of bradycardia/complete heart block with associated hypotension and discovery of urinary tract infection he was initiated on Eliquis 10 mg b.i.d. because the DVT. Day shift hospitalist had rounded on patient and he was stable, was expected to discharge tomorrow however patient's requested he be transferred to [place] to investigate his bradycardia/complete heart block. When patient developed GI bleed and had decreased blood pressure we ordered additional dose of midodrine oral while obtaining peripheral IV access has his prior saline lock had infiltrated. Labs were drawn initially reporting near normal H&H which did not make sense given patient's baseline H&H has been around 8.6 prior to this bleeding episode. Labs also showed mild hyperkalemia, slightly worsened renal function and an INR of 1.9. Ordered 2 units PRBCs to be transfused as repeat H&H was 6.3 and 21.2. I personally established 2 separate saline locks and an additional IV was placed with use of ultrasound. Patient was transferred to the ICU for closer monitoring. Blood pressure initially slightly improved with IV fluids but decreased again and remained approximately 70/40 for a couple of hours while receiving IV fluids, Levophed and vasopressin peripherally until PRBCs could be transfused and central line could be inserted. Additionally, Doctor Leslie was at bedside and had spoken to ICU attending Dr. Urbano and decision was made to give Kcentra. Dr. Omalley was able to establish central line access and vasopressors were moved to Central Line upon placement verification. After 1st unit of PRBCs infused blood pressure was improving but hemoglobin and hematocrit slightly lower at 6.1/19.0. Two additional units of PRBCs to be transfused as well as 2 units of FFP. Once blood pressure stabilized patient will undergo CTA chest abdomen pelvis to assess for extravasating vascular bleed which would require emergent/immediate transfer for IR embolization. NM GI Bleeding scan ordered for the AM if CTA not diagnostic. Gastroenterology has also been notified and plans to see patient in the morning. In the meantime transfer has been arranged to [place] under the care of Oncology Dr. Loredo (sp?) but no beds are available at [facility] at this time. Due to a high probability of clinically significant, life threatening deterioration, the patient required my highest level of preparedness to intervene emergently and I personally spent this critical care time directly and personally managing the patient. This critical care time included obtaining a history; examining the patient; pulse oximetry; ordering and review of studies; arranging urgent treatment with development of a management plan; evaluation of patient's response to treatment; frequent reassessment; and discussions with other providers. It was exclusive of separately billable procedures and treating other patients and teaching time. Please see Assessment and Plan section and the rest of the note for further information on patient assessment and treatment. Critical Care time: 90 minutes (separate from procedures)
[2024-08-30 22:02] LABS: Hemoglobin 6.1 g/dL (14.0-18.0)
[2024-08-30 22:13] LABS: Anion Gap 5 mmol/L (4-12); Blood Urea Nitrogen 29 mg/dL (9-20); Calcium 7.7 mg/dL (8.4-10.2); Carbon Dioxide 22 mmol/L (22-30); Chloride 106 mmol/L (98-107); Estimated CRCL calculation 50 ml/min; Estimated Glomerular Filt Rate 46; Glucose 150 mg/dL (65-110); Potassium 5.1 mmol/L (3.4-5.0); Sodium 133 mmol/L (137-145)
--- NOTE | 2024-08-30 22:25 | WPDPROCEDUR ---
Procedures Central Line Placement Right IJ: Central Line Date: 08/30/24 Central Line Time: 08:45 Discussed w/ the patient/family/POA,the placement of a central venous catheter, including its clinical necessity/indication & associated potential risks, benifits and alternatives.: Yes The patient/family/POA understand(s) and acknowledge(s) the need to proceed with central venous catheter insertion as an important element of the patient's clinical management.: Yes Consent: I have discussed with the patient and/or surrogate, the non-emergent placement of a central venous catheter, including its clinical necessity/indication and associated potential risks and complications. The patient and/or surrogate understand(s) and acknowledge(s) the need to proceed with central venous catheter insertion as an important element of the patient's clinical management. Time Out Performed: Yes Patient Position: trendelenburg Patient placed on monitor/pulse ox: Yes Provider Prep: mask, sterile gown, sterile gloves, Max. sterile barrier precautions, cap and hand hygiene with conventional soap/water or alcohol based hand rub Central line prep: 2% Chlorhexidine scrub Local anesthesia used: lidocaine 1% Amount of anesthesia used (ml): 10 Sterile US Technique with sterile gel/sterile probe covers: Yes Central line lumen inserted: triple Chadian: 16 Length (cm): 16 Depth of Insertion (cm): 15 Post Procedure: sutured in place, good blood return, all ports aspirated, flushed, capped, transparent dressing and aseptic technique maintained throughout procedure Post procedure x-ray: tip of catheter in good position and no pneumothorax seen Patient tolerated procedure: well and no complications Complications: none
[2024-08-30 23:01] LABS: INR 1.7; Partial Thromboplastin Time 31.9 Seconds (22.3-36.8); Prothrombin Time 20.1 Seconds (11.1-14.7)
[2024-08-31] VITALS (30 sets, daily range): BP systolic 59–134; BP diastolic 29–79; PULSE 25–126; RESP 20–29; TEMP 36.3–37.9; O2SAT 96–100
[2024-08-31 00:59] LABS: Hematocrit 22.1 % (42.0-52.0); Hemoglobin 7.4 g/dL (14.0-18.0); Mean Corpuscular HGB Conc 33.5 g/dl (32-36); Mean Corpuscular Hemoglobin 29.1 pg (26-34); Mean Platelet Volume 8.7 fl (7.4-10.4); Platelet Count Result 369 k/mm3 (150-375); Red Blood Count 2.54 M/mm3 (4.6-6.20); Red Cell Distribution Width 15.9 % (11.5-14.5); White Blood Count 27.9 K/mm3 (4.5-10.0)
[2024-08-31 01:10] LABS: Anion Gap 4 mmol/L (4-12); Blood Urea Nitrogen 31 mg/dL (9-20); Calcium 7.7 mg/dL (8.4-10.2); Carbon Dioxide 25 mmol/L (22-30); Chloride 105 mmol/L (98-107); Estimated CRCL calculation 50 ml/min; Estimated Glomerular Filt Rate 46; Glucose 132 mg/dL (65-110); Potassium 5.1 mmol/L (3.4-5.0); Sodium 134 mmol/L (137-145)
[2024-08-31 01:25] LABS: INR 1.5; Partial Thromboplastin Time 31.1 Seconds (22.3-36.8); Prothrombin Time 18.4 Seconds (11.1-14.7)
[2024-08-31] MEDS: PHENYLEPHRINE HCL INJ 50 MG in DEXTROSE 5% IN WATER 250 ML/245 ML BAG 12 ML IV CONT (04:38)
--- NOTE | 2024-08-31 04:56 | PC.NURSE ---
Patient condition had been improving throughout evening with stool output slowing down and hbg up to 7.4. After CT output of blood in stool increased and patient Spoke with Dr Urbano regarding increased bloody stool and sudden drop in blood pressure. Discussed hx of patient and amount of blood products received so far. orders received for coag panel, INR, PTT, fibrinogen, transfusion of 2 units platelets and another unit of PRBC with one on hold, 2 amps calcium gluconate, placement of NG tube, and to touch base with Dr Ng.
[2024-08-31] MEDS: CALCIUM GLUC 2,000 MG/NS 100ML 2,000 MG/100 ML BAG 100 MG IVPB (05:04)
--- NOTE | 2024-08-31 05:10 | PC.NURSE ---
Call placed to Dr Eng to make aware of continued blood loss, drop in blood pressure, and total blood products received at this time. Dr Eng states he will do EGD and colonoscopy.
--- NOTE | 2024-08-31 05:16 | PC.NURSE ---
Spoke with about plan for more blood products and EGD and colonoscopy. is hesitant for to go through procedure. Asked about bed situation with [facility]. to discuss continuing treatment with . Dr Omalley contacted and she will update [facility] to see if bed can be obtained with increased urgency.
[2024-08-31] MEDS: ONDANSETRON INJ 4 MG/2 ML VIAL IV PUSH (05:17)
[2024-08-31 05:19] LABS: Hemoglobin 9.8 g/dL (14.0-18.0); Mean Corpuscular HGB Conc 33.8 g/dl (32-36); Mean Corpuscular Volume 88.7 fl (80-100); Mean Platelet Volume 9.2 fl (7.4-10.4); Platelet Count Result 393 k/mm3 (150-375); Red Blood Count 3.27 M/mm3 (4.6-6.20); Red Cell Distribution Width 15.9 % (11.5-14.5); White Blood Count 35.1 K/mm3 (4.5-10.0)
[2024-08-31 05:29] LABS: Alanine Aminotransferase 44 U/L (6-50); Albumin Level 2.2 g/dL (3.5-5.1); Alkaline Phosphatase 127 U/L (38-126); Anion Gap 7 mmol/L (4-12); Aspartate Amino Transferase 88 U/L (17-59); Bilirubin,Total 1.1 mg/dL (0.2-1.3); Blood Urea Nitrogen 34 mg/dL (9-20); Calcium 7.8 mg/dL (8.4-10.2); Carbon Dioxide 22 mmol/L (22-30); Chloride 105 mmol/L (98-107); Estimated CRCL calculation 50 ml/min; Estimated Glomerular Filt Rate 46; Glucose 164 mg/dL (65-110); Magnesium 1.9 mg/dL (1.6-2.3); Potassium 5.6 mmol/L (3.4-5.0); Sodium 134 mmol/L (137-145)
[2024-08-31 05:35] LABS: INR 1.5; Prothrombin Time 18.5 Seconds (11.1-14.7)
[2024-08-31 05:36] LABS: Fibrinogen 353 mg/dl (215-510); Partial Thromboplastin Time 31.1 Seconds (22.3-36.8)
[2024-08-31 05:40] LABS: Band Neutrophils Percent 1 % (0-6); Lymphocytes Absolute Manual 3.86 K/mm3 (1.1-4.5); Monocytes Absolute Manual 1.05 K/mm3 (0.1-0.90); Monocytes Percent Manual 3 % (3-9); Neutrophils Absolute Manual 30.18 K/mm3 (1.3-6.7); Neutrophils Percent Manual 85 % (46-73); Total Cells Counted 100
[2024-08-31 05:41] LABS: Platelet Estimate Slightly Increased (Adequate)
[2024-08-31 05:42] LABS: Anisocytosis 1+; Atypical Lymphocytes Present; Burr Cells 1+; Poikilocytosis 1+; Schistocytes None Seen
--- NOTE | 2024-08-31 06:04 | PC.NURSE ---
Vincent and his family have decided to discontinue treatment. Family and patient educated to CT findings and repeat wishes to withdraw care. Dr Omalley notified and comfort care orders entered. Air evac released and [facility] transfer line called to make aware bed will not be needed.
[2024-08-31] MEDS: LORazepam INJ (*CRX) 2 MG/ML VIAL IV PUSH ×2 (06:09→08:04)
[2024-08-31] MEDS: MORPHINE SULFATE (*CRX) 2 MG/ML INJ 10 MG IV PUSH (06:20)
--- NOTE | 2024-08-31 06:30 | PC.NURSE ---
Bag of pheresis platelets returned to blood bank at 0623.
--- NOTE | 2024-08-31 07:25 | WPDGICN ---
Assessment and Plan Assessment and plan (1) GIB (gastrointestinal bleeding): Code(s): K92.2 - Gastrointestinal hemorrhage, unspecified Status: Acute Assessment and Plan: patient developed massive gib and he is unresponsive given advanced metastatic disease, family decided against invasive procedures and only comfort measures now (2) Hemorrhagic shock: Code(s): R57.8 - Other shock Status: Acute Assessment and Plan: s/p blood products (3) Chronic anticoagulation: Code(s): Z79.01 - residential (current) use of anticoagulants Status: Acute (4) Any cell carcinoma: Code(s): C4A.9 - Greenfield cell carcinoma, unspecified Status: Acute (5) Metastatic cancer: Code(s): C79.9 - Secondary malignant neoplasm of unspecified site Status: Acute GI Consult Note Consult date/time: 08/31/24 07:26 Reason for consult: gib, shock HPI: Vincent Ojeda is a 68 year old male with history of Greenfield cell carcinoma, 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 He was recovering from repair of a pathological left femur fracture and urosepsis. Here with had sudden onset of hematochezia, also reported hematemesis. He was transferred to ICU, CT scan revealed widespread metastatic disease and possible site of bleeding in stomach, he was hypotensive with symptomatic anemia, given blood transfusion, plasma and started on pressors. Family decided to withdraw care. Review of Systems Review of Systems: ROS unobtainable: Yes unobtainable due to medical condition and unobtainable due to mental status PMFSH Past Medical History Medical History (Updated 08/31/24 @ 15:38 by Js Rneae MD) Deep venous thrombosis of lower extremity GIB (gastrointestinal bleeding) Guillain-[place] syndrome Hemorrhagic shock Greenfield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 History of tracheostomy Social History Social History (Updated 08/29/24 @ 23:52 by Estella Bradley PA-C) Social History: Surrogate medical decision maker: Isabel Ojeda, spouse. Code status: Do not resuscitate. Smoking status: Never smoker Second hand tobacco smoke exposure: No Alcohol intake: former Substance use: never Substance use type: does not use Do You Feel Safe in your Home?: Yes Lack of Transportation: No Lack of Food: Never True Current Housing: I Have Housing Concerned About Future Housing: No Difficulty Paying Gas/Electric Bills: No Difficulty Paying for Meds: No Currently Unemployed: No Education: High School Diploma/GED Difficulty w/ Childcare or Family Care: No Spiritual care concerns: No Meds Home Medications and Allergies Home Medications Medication Instructions Recorded Confirmed Type cholecalciferol (vitamin D3) 1,250 1,250 mcg PO WEEKLY #30 caps 08/23/24 08/29/24 Rx mcg (50,000 unit) capsule gabapentin 300 mg capsule 300 mg PO TID #90 caps 08/23/24 08/29/24 Rx paroxetine HCl 20 mg tablet 20 mg PO QAM #30 tabs 08/23/24 08/29/24 Rx prednisone 10 mg tablet 10 mg PO DAILY #30 tabs 08/23/24 08/29/24 Rx sennosides 8.6 mg tablet (senna) 8.6 mg PO BID #60 tabs 08/23/24 08/29/24 Rx trazodone 50 mg tablet 50 mg PO HS #30 tabs 08/23/24 08/29/24 Rx apixaban 5 mg tablet (Eliquis) 5 mg PO Q12HR #120 tabs 08/28/24 08/29/24 Rx apixaban 5 mg tablet (Eliquis) 10 mg PO Q12HR #8 tabs 08/28/24 08/29/24 Rx acetaminophen 325 mg tablet 650 mg PO Q6H PRN oain 08/29/24 08/29/24 History
[2024-08-31] MEDS: MORPHINE SULFATE (*CRX) 2 MG/ML INJ IV PUSH (08:04)
--- NOTE | 2024-08-31 08:09 | PC.NURSE ---
This RN spent the majority of the 12h night warehouse manager in with the patient, speaking with the BLADDER BLOWER and MDs that were working with him, educating and consoling the family, making phone calls, infusing blood products, taking the patient down to CT and coordinating other care activities which included cleaning up the patient and addressing comfort.
[2024-08-31] MEDS: MORPHINE 50 MG/NS 100ML (*CRX) 50 MG/100 ML BAG 8 MG IV CONT (08:13)
--- NOTE | 2024-08-31 09:59 | P.DN_ITS ---
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 The patient provides the following history. He is at their facility for rehab following a hospitalization at [place] for repair of a pathological left femur fracture and urosepsis. He has been progressing in rehab and he is supposed to be discharged home tomorrow. On routine vital signs this afternoon he was found to have a blood pressure of 81/37 and a heart rate of 30 and was sent in for evaluation. He reports feeling just fine at that time and was not symptomatic whatsoever. Specifically he denies feelings of weakness, dizziness, lightheadedness, chest pain, shortness of breath, nausea, vomiting, and sweats. He has not had any significant dysuria. He denies cold or flu-like symptoms. Appetite has been good and he denies vomiting and diarrhea. In the ED: Vital signs on arrival include a temperature of 98.2?, blood pressure 107/55, pulse 91, respiratory rate 16, blood pressure 1 100% on room air. Labs were significant for WBC count of 15.7, hemoglobin 8.3, sodium 133, BUN 23, creatinine 1.20, AST 62, alkaline phosphatase 211, troponin 0.013, proBNP three thousand three hundred fifty, total protein 6.0, albumin 3.1. Urine was nitrate and leukocyte esterase positive with greater than 100 WBC and 2+ bacteria. He was given levofloxacin 750 mg and being admitted in this setting for close monitoring given the reported bradycardia. On 08/30-08/31 :He was recovering from repair of a pathological left femur fracture and urosepsis. Here with had sudden onset of hematochezia, also reported hematemesis. He was transferred to ICU, CT scan revealed widespread metastatic disease and possible site of bleeding in stomach, he was hypotensive with symptomatic anemia, given blood transfusion, plasma and started on pressors. Family decided to withdraw care. Patient today pronounced at 09:34 by Latisha Boyd RN, Faye Jensen RN.
== END 2024-08-31 09:34 | disposition expired | DRG 378 ==
LOC: ANHED 18:40 → ANHIMU 20:01 → ANHICU 08-30 18:36
PROVIDERS: Internal Medicine; Nurse Practitioner; Physician Assistant; Admitting Provider Internal Medicine; Emergency Provider Emergency Medicine; PCP Internal Medicine; Visit Provider General Practice
DX: K92.2 Gastrointestinal hemorrhage, unspecified (principal); C79.51 Secondary malignant neoplasm of bone; G61.0 Guillain-Barre syndrome; N39.0 Urinary tract infection, site not specified; R57.8 Other shock; R00.1 Bradycardia, unspecified; I44.7 Left bundle-branch block, unspecified; D64.9 Anemia, unspecified; I95.9 Hypotension, unspecified; C4A.9 Merkel cell carcinoma, unspecified; M84.452D Pathological fracture, left femur, subsequent encounter for fracture with routine healing; Z20.822 Contact with and (suspected) exposure to COVID-19; T45.AX5 Adverse effect of immune checkpoint inhibitors and immunostimulant drugs; Z86.718 Personal history of other venous thrombosis and embolism; Z79.01 Long term (current) use of anticoagulants
CPT/HCPCS: 36415; 36430; 71275; 74174; 80048; 80053; 81001; 82533; 83735; 83880; 84134; 84443; 84484; 85014; 85018; 85025; 85027; 85049; 85380; 85384; 85610; 85730; 86850; 86900; 86901; 86923; 87040; 87086; 87186; 87635; 93005; 96365; 96375; 97162; 97166; 99285; A9270; C1751; G0378; J0613; J1956; J2060; J2270; J2371; J2405; J2470; J7030; J7040; J7050; J7060; J7168; J7512; P9016; P9017; P9034; Q9967